=== PATIENT | female | born 1995 | race Caucasian/White ===

== ENCOUNTER 2023-01-18 01:28 | Observation (INO) | payer MEDICAID ==
[~2023-01-18] VITALS: Ht 162 cm; Wt 58.0 kg
[2023-01-18] MEDS ORDERED: LACTATED RINGERS 1,000 ML IV ONE ×3 (02:00→04:55)
[2023-01-18 02:11] LABS: BASOPHILS % (AUTO) 0 % (0-10); EOSINOPHILS % (AUTO) 0 % (0-10); HEMATOCRIT 42 % (35-52); HEMOGLOBIN 13.6 g/dL (11.5-16.0); LYMPHOCYTES # (AUTO) 0.6 10^3/uL (1.0-4.0); LYMPHOCYTES % (AUTO) 4 % (12-44); MEAN CORPUSCULAR HEMOGLOBIN 27 pg (25-34); MEAN CORPUSCULAR HGB CONC 33 g/dL (32-36); MEAN CORPUSCULAR VOLUME 83 fL (80-99); MEAN PLATELET VOLUME 10.8 fL (9.0-12.2); MONOCYTES # (AUTO) 0.5 10^3/uL (0.0-1.0); MONOCYTES % (AUTO) 4 % (0-12); NEUTROPHILS # (AUTO) 13.1 10^3/uL (1.8-7.8); NEUTROPHILS % (AUTO) 91 % (42-75); PLATELET COUNT 261 10^3/uL (130-400); WHITE BLOOD COUNT 14.3 10^3/uL (4.3-11.0)
[2023-01-18] MEDS ORDERED: KETOROLAC 30 MG/ML VIAL IVP ONE (02:15)
[2023-01-18] MEDS ORDERED: ONDANSETRON 4 MG/2 ML (SDV) Z0FRAN IVP ONE (02:15)
[2023-01-18 02:22] LABS: ALBUMIN 4.4 GM/DL (3.2-4.5)
[2023-01-18 02:23] LABS: CALCIUM 9.8 MG/DL (8.5-10.1); INR 1.2 (0.8-1.4); PROTHROMBIN TIME PATIENT 15.3 SEC (12.2-14.7)
[2023-01-18 02:25] LABS: TOTAL PROTEIN 7.8 GM/DL (6.4-8.2)
[2023-01-18 02:26] LABS: BILIRUBIN,TOTAL 1.5 MG/DL (0.1-1.0)
[2023-01-18 02:28] LABS: CREATININE SERUM 0.72 MG/DL (0.60-1.30)
[2023-01-18 02:44] LABS: LYMPHOCYTES % (MANUAL) 6 %; MONOCYTES % (MANUAL) 2 %; NEUTROPHILS % (MANUAL) 92 %; RBC MORPH NORMAL
[2023-01-18 03:41] LABS: CLARITY,URINE SL CLOUDY; COLOR,URINE ORANGE; GLUCOSE, URINE (UA) TRACE (NEGATIVE); KETONES,URINE TRACE (NEGATIVE); LEUKOCYTE ESTERASE ,URINE 1+ (NEGATIVE); NITRITE,URINE POSITIVE (NEGATIVE); PROTEIN,URINE 2+ (NEGATIVE)
--- NOTE | 2023-01-18 03:52 | ED General ---
General Chief Complaint: Fever-Adult/Adol Stated Complaint: RT SIDE PAIN,FEVER,CHILLS Nursing Triage Note: PT A&OX4; PT AMBULATES TO ROOM WITHOUT ASSISTANCE OF ER STAFF; PT ADVISES THAT FOR THE PAST 2 DAYS SHE HAS HAD INCREASING PAIN AND DISCOMFORT TO HER R FLANK; PT HAS TAKEN AZO WITHOUT AN IMPROVEMENT IN SYMPTOMS; PT PRIMARILY C/O PAIN TO R FLANK BUT ALSO REPORTS SOME DISCOMFORT WITH URINATION Source of Information: Patient Exam Limitations: No Limitations History of Present Illness Date Seen by Provider: January 18, 2023 Time Seen by Provider: 01:36 Initial Comments This 27-year-old young lady presents to the emergency room with complaints of fever, nausea and vomiting, right flank pain, dysuria, and urinary frequency. She is febrile on presentation and tachycardic with a heart rate in the 130s. Patient has dystonic movements consistent with methamphetamine use but denies any drug use. After urine drug screen returned, she did admit to smoking methamphetamine a few days ago. She reports using Azo which improved her dysuria. She denies vaginal symptoms or abdominal pain. Allergies and Home Medications Allergies Coded Allergies: No Known Drug Allergies (Unverified , 01/18/23) Patient Home Medication List Home Medication List Reviewed: Yes Review of Systems Review of Systems Constitutional: see HPI EENTM: no symptoms reported Respiratory: no symptoms reported Cardiovascular: see HPI Gastrointestinal: see HPI Genitourinary: see HPI : No Musculoskeletal: no symptoms reported Skin: no symptoms reported Psychiatric/Neurological: See HPI Hematologic/Lymphatic: No Symptoms Reported Immunological/Allergic: no symptoms reported Past Lqgvylo-Xzyjvh-Fnmozc Hx Patient Social History Tobacco Use?: Yes Tobacco type used: Cigarettes Smoking Status: Current Everyday Smoker Use of E-Cig and/or Vaping dev: No Substance use?: Yes Substance type: Methamphetamine Alcohol Use?: No Pt feels they are or have been: No Immunizations Up To Date Influenza Vaccine Up-to-Date: No; Not Current First/Initial COVID19 Vaccinat: N/A Past Medical History Surgery/Hospitalization HX: TUBAL LIGATION/D&C Surgeries: Yes Abdominal (D&C), Tubal Ligation Respiratory: No Cardiac: No Neurological: No : No Last Menstrual Period: December 28, 2022 Reproductive Disorders: No Genitourinary: No Gastrointestinal: No Musculoskeletal: No Endocrine: No HEENT: No Cancer: No Psychosocial: Yes (Urine drug screen positive for methamphetamine) Integumentary: No Physical Exam-Suspected Sepsis Physical Exam Vital Signs Vital Signs - First Documented 01/18/23 01:40 Temp 38.4 Pulse 142 Resp 24 B/P (MAP) 128/90 (103) Pulse Ox 98 O2 Delivery Room Air Capillary Refill : Less Than 3 Seconds Blood Pressure Mean: 103 Height, Weight, BMI Height: '" Weight: lbs. oz. kg; 21.00 BMI Method: General Appearance: WD/WN, Mild Distress, Thin HEENT: PERRL/EOMI, Normal ENT Inspection Neck: Normal Inspection Respiratory: Lungs Clear, Normal Breath Sounds, No Accessory Muscle Use Cardiovascular: No Edema, No Murmur, Tachycardia Gastrointestinal: Non Tender, Soft, Abnormal Bowel Sounds (Decreased); No Distended Back: Normal Inspection, CVA Tenderness (R) Extremity: Normal Inspection, No Pedal Edema Neurologic/Psychiatric: Alert, Oriented x3, No Motor/Sensory Deficits, Normal Mood/Affect, Other (Dystonic movements consistent with methamphetamine use) Skin: warm/dry, pallor Focused Exam Lactate Level 01/18/23 01:55: Lactic Acid Level 0.99 Lactic Acid Level Laboratory Tests Test 01/18/23 01:55 Lactic Acid Level 0.99 MMOL/L (0.50-2.00) Progress/Results/Core Measures Suspected Sepsis SIRS Temperature: Pulse: 142 Respiratory Rate: 24 Laboratory Tests 01/18/23 01:55: White Blood Count 14.3H Blood Pressure 128 /90 Mean: 103 01/18/23 01:55: Lactic Acid Level 0.99 Laboratory Tests 01/18/23 01:55: Creatinine 0.72, INR Comment 1.2, Platelet Count 261, Total Bilirubin 1.5H Results/Orders Lab Results Laboratory Tests Test 01/18/23 01:55 01/18/23 02:18 01/18/23 03:29 Range/Units White Blood Count 14.3 H 4.3-11.0 10^3/uL Red Blood Count 5.00 3.80-5.11 10^6/uL Hemoglobin 13.6 11.5-16.0 g/dL Hematocrit 42 35-52 % Mean Corpuscular Volume 83 80-99 fL Mean Corpuscular Hemoglobin 27 25-34 pg Mean Corpuscular Hemoglobin Concent 33 32-36 g/dL Red Cell Distribution Width 12.4 10.0-14.5 % Platelet Count 261 130-400 10^3/uL Mean Platelet Volume 10.8 9.0-12.2 fL Immature Granulocyte % (Auto) 1 % Neutrophils (%) (Auto) 91 H 42-75 % Lymphocytes (%) (Auto) 4 L 12-44 % Monocytes (%) (Auto) 4 0-12 % Eosinophils (%) (Auto) 0 0-10 % Basophils (%) (Auto) 0 0-10 % Neutrophils # (Auto) 13.1 H 1.8-7.8 10^3/uL Lymphocytes # (Auto) 0.6 L 1.0-4.0 10^3/uL Monocytes # (Auto) 0.5 0.0-1.0 10^3/uL Eosinophils # (Auto) 0.0 0.0-0.3 10^3/uL Basophils # (Auto) 0.0 0.0-0.1 10^3/uL Immature Granulocyte # (Auto) 0.1 0.0-0.1 10^3/uL Neutrophils % (Manual) 92 % Lymphocytes % (Manual) 6 % Monocytes % (Manual) 2 % Blood Morphology Comment NORMAL Prothrombin Time 15.3 H 12.2-14.7 SEC INR Comment 1.2 0.8-1.4 Activated Partial Thromboplast Time 34 24-35 SEC Sodium Level 139 135-145 MMOL/L Potassium Level 4.0 3.6-5.0 MMOL/L Chloride Level 104 98-107 MMOL/L Carbon Dioxide Level 22 21-32 MMOL/L Anion Gap 13 5-14 MMOL/L Blood Urea Nitrogen 11 7-18 MG/DL Creatinine 0.72 0.60-1.30 MG/DL Estimat Glomerular Filtration Rate 116 BUN/Creatinine Ratio 15 Glucose Level 108 H 70-105 MG/DL Lactic Acid Level 0.99 0.50-2.00 MMOL/L Calcium Level 9.8 8.5-10.1 MG/DL Corrected Calcium 9.5 8.5-10.1 MG/DL Total Bilirubin 1.5 H 0.1-1.0 MG/DL Aspartate Amino Transf (AST/SGOT) 14 5-34 U/L Alanine Aminotransferase (ALT/SGPT) 15 0-55 U/L Alkaline Phosphatase 77 40-136 U/L C-Reactive Protein High Sensitivity 20.81 H 0.00-0.50 MG/DL Total Protein 7.8 6.4-8.2 GM/DL Albumin 4.4 3.2-4.5 GM/DL Serum Test, Qualitative NEGATIVE NEGATIVE Influenza Type A (RT-PCR) Not Detected Not Detecte Influenza Type B (RT-PCR) Not Detected Not Detecte SARS-CoV-2 RNA (RT-PCR) Not Detected Not Detecte Urine Color ORANGE Urine Clarity SL CLOUDY Urine pH 6.0 5-9 Urine Specific [place] 1.020 1.016-1.022 Urine Protein 2+ H NEGATIVE Urine Glucose (UA) TRACE H NEGATIVE Urine Ketones TRACE H NEGATIVE Urine Nitrite POSITIVE H NEGATIVE Urine Bilirubin 1+ H NEGATIVE Urine Urobilinogen 4.0 < = 1.0 MG/DL Urine Leukocyte Esterase 1+ H NEGATIVE Urine RBC (Auto) NEGATIVE NEGATIVE Urine RBC RARE /HPF Urine WBC 10-25 H /HPF Urine Squamous Epithelial Cells RARE /HPF Urine Crystals NONE /LPF Urine Bacteria FEW H /HPF Urine Casts PRESENT /LPF Urine Hyaline Casts 0-2 H /LPF Urine White Blood Cell Casts RARE H /LPF Urine Mucus SMALL H /LPF Urine Trichomonas FEW H /HPF Urine Culture Indicated YES Urine Opiates Screen NEGATIVE NEGATIVE Urine Oxycodone Screen NEGATIVE NEGATIVE Urine Methadone Screen NEGATIVE NEGATIVE Urine Propoxyphene Screen NEGATIVE NEGATIVE Urine Barbiturates Screen NEGATIVE NEGATIVE Ur Tricyclic Antidepressants Screen NEGATIVE NEGATIVE Urine Phencyclidine Screen NEGATIVE NEGATIVE Urine Amphetamines Screen POSITIVE H NEGATIVE Urine Methamphetamines Screen POSITIVE H NEGATIVE Urine Benzodiazepines Screen NEGATIVE NEGATIVE Urine Cocaine Screen NEGATIVE NEGATIVE Urine Cannabinoids Screen NEGATIVE NEGATIVE My Orders Orders - DESMOND LORENZO MD Ua Culture If Indicated (01/18/23 01:36) Cbc With Automated Diff (01/18/23 01:56) Comprehensive Metabolic Panel (01/18/23 01:56) Blood Culture (01/18/23 01:56) Protime With Inr (01/18/23 01:56) Partial Thromboplastin Time (01/18/23 01:56) Vital Signs Adult Sepsis Patie Q15M (01/18/23 01:56) Remove Rings In Anticipation O (01/18/23 01:56) Lactic Acid Analyzer (01/18/23 01:56) Hs C Reactive Protein (01/18/23 01:56) Hcg,Qualitative Serum (01/18/23 01:56) Ed Iv/Invasive Line Start (01/18/23 01:56) Lactated Ringers (Lr 1000 Ml Iv Solution (01/18/23 02:00) Ondansetron Injection (Zofran Injectio (01/18/23 02:15) Ketorolac Injection (Toradol Injection) (01/18/23 02:15) Drug Screen Stat (Urine) (01/18/23 02:05) Manual Differential (01/18/23 01:55) Covid 19 Inhouse Test (01/18/23 02:15) Influenza A And B By Pcr (01/18/23 02:15) Lactated Ringers (Lr 1000 Ml Iv Solution (01/18/23 02:45) Urine Culture (01/18/23 03:29) Medications Given in ED Current Medications Medications Dose Ordered Sig/Vijay Route Start Time Stop Time Status Last Admin Dose Admin Ketorolac Tromethamine 30 mg ONCE ONCE IVP 01/18/23 02:15 01/18/23 02:16 DC 01/18/23 02:15 30 MG Lactated Ringer's 1,000 ml @ 0 mls/hr Q0M ONCE IV 01/18/23 02:00 01/18/23 02:01 DC 01/18/23 02:07 1,000 MLS/HR Lactated Ringer's 1,000 ml @ 0 mls/hr Q0M ONCE IV 01/18/23 02:45 01/18/23 02:46 DC 01/18/23 03:02 1,000 MLS/HR Ondansetron HCl 8 mg ONCE ONCE IVP 01/18/23 02:15 01/18/23 02:16 DC 01/18/23 02:15 8 MG Vital Signs/I&O 01/18/23 01:40 Temp 38.4 Pulse 142 Resp 24 B/P (MAP) 128/90 (103) Pulse Ox 98 O2 Delivery Room Air Capillary Refill : Less Than 3 Seconds Blood Pressure Mean: 103 Progress Note : Time: 04:23 Progress Note Patient was interviewed and examined shortly after arrival. Vomiting was treated with Zofran. She was hydrated with 2 L of LR. Pain was treated with Toradol. Sepsis was suspected and septic work-up was pursued. Identifying source of infection was delayed as patient could not produce a urine specimen until IV fluids were administered. Once urinalysis was reported, Rocephin was administered for probable pyelonephritis/UTI. Labs were reviewed in their entirety. Patient was noted to have leukocytosis on her CBC with a white count of 14,000. There was a relative lymphopenia which prompted viral swabs for COVID and influenza which were both negative. CMP was unremarkable. CRP was significantly elevated at 20. Urinalysis demonstrated pyuria adding to the suspicion of pyelonephritis. Urine drug screen was positive for methamphetamine. This convoluted the determination of sepsis with pyelonephritis versus simple urinary tract infection in the context of methamphetamine use. Serum test was negative. Coagulation studies were unremarkable. All labs were reviewed and interpreted by me. Patient remained tachycardic with a heart rate in the 110s even after administration of 2 L of IV fluid. Blood pressure remained stable. Symptoms of pain and nausea resolved with treatment. She was agreeable to admission. Admission was discussed with Dr. Quarles, hospitalist. Departure Communication (Admissions) Time/Spoke to Admitting Phy: 04:09 Dr. Quarles Impression Primary Impression: Pyelonephritis Additional Impression: Methamphetamine abuse Disposition: ADMITTED INPATIENT Condition: Stable Admissions Decision to Admit Reason: Admit from ER (General) Decision to Admit/Date: January 18, 2023 Time/Decision to Admit Time: 04:09 Departure-Patient Inst. Referrals: NO,LOCAL PHYSICIAN (PCP/Family) Primary Care Physician DESMOND LORENZO MD January 18, 2023 03:52
[2023-01-18 04:02] LABS: AMPHETAMINE SCREEN, URINE POSITIVE (NEGATIVE); BARBITURATE SCREEN URINE NEGATIVE (NEGATIVE); BENZODIAZEPINES SCREEN URINE NEGATIVE (NEGATIVE); CANNABINOID SCREEN, URINE NEGATIVE (NEGATIVE); COCAINE SCREEN URINE NEGATIVE (NEGATIVE); METHADONE STAT NEGATIVE (NEGATIVE); OPIATE SCREEN URINE NEGATIVE (NEGATIVE); OXYCODONE STAT NEGATIVE (NEGATIVE); PROPOXYPHENE STAT NEGATIVE (NEGATIVE); TRICYCLIC ANTIDEPRESSANTS SCRE NEGATIVE (NEGATIVE)
[2023-01-18 04:03] LABS: BACTERIA,URINE FEW /HPF; BILIRUBIN,URINE 1+ (NEGATIVE); RBC,URINE RARE /HPF; SQUAMOUS EPITHELIAL CELL,UR RARE /HPF
[2023-01-18 04:04] LABS: HYALINE CASTS, URINE 0-2 /LPF; TRICHOMONAS,URINE FEW /HPF; WHITE BLOOD CELL CASTS, URINE RARE /LPF
[2023-01-18] MEDS ORDERED: cefTRIAXone PRE-MIX 50 ML IV STA (04:08)
[2023-01-18] MEDS: LACTATED RINGERS 1,000 ML IV SCH ×3 (05:03→17:50)
[2023-01-18] MEDS ORDERED: ONDANSETRON 4 MG/2 ML (SDV) Z0FRAN IV PRN (05:15)
[2023-01-18 05:54] VITALS: BP 104/62
[2023-01-18] MEDS: KETOROLAC 15 MG/ML VIAL IVP PRN ×2 (08:07→15:05)
[2023-01-18 08:49] VITALS: BP 98/57
[2023-01-18] MEDS: ACETAMINOPHEN 500 MG TAB (TYLENOL) PO PRN ×3 (09:39→23:48)
[2023-01-18] MEDS ORDERED: cefTRIAXone IV/IM 1,000 MG in NS (IVPB) 50 ML IV ONE (10:30)
[2023-01-18 11:39] VITALS: BP 101/63
[2023-01-18 15:50] VITALS: BP 92/58
[2023-01-18 19:27] VITALS: BP 96/61
--- NOTE | 2023-01-18 20:40 | History & Physical-Hospitalist ---
History of Present Illness HPI/Chief Complaint Vidhi Anaya is a 27 year old female who presented with flank pain. She has also had fevers. She reports dysuria and urinary frequency. She denies chest pain. She denies shortness of breath. She has no known health problems. She does not take any medications. She does use methamphetamine. Source: patient Exam Limitations: no limitations Date Seen 01/18/23 Time Seen by a Provider: 10:30 Attending Physician No,Local Physician PCP Admitting Physician: Kathy Parnell MD Attending Physician: Kathy Parnell MD Referring Physician Date of Admission January 18, 2023 at 04:25 Home Medications & Allergies Home Medications Reviewed patient Home Medication Reconciliation performed by pharmacy medication reconciliations career resource technician and/or nursing. Patients Allergies have been reviewed. Allergies Allergies Coded Allergies No Known Drug Allergies (Unverified01/18/23) Past Krfnsux-Ortind-Jxflik Hx Patient Social History Tobacco Use?: Yes Tobacco type used: Cigarettes Smoking Status: Current Everyday Smoker Smokeless Tobacco Frequency: Never a User Use of E-Cig and/or Vaping dev: No Substance use?: Yes Substance type: Amphetamines, Methamphetamine Substance frequency: Several times a month Alcohol Use?: No Pt feels they are or have been: No Immunizations Up To Date First/Initial COVID19 Vaccinat: N/A Current Status Advance Directives: No Communicates: Verbally Primary Language: Kyrgyz Preferred Spoken Language: Kyrgyz Is interpretation needed?: No Implanted or Applied Medical D: None Past Medical History Surgeries: Abdominal (D&C), Tubal Ligation Review of Systems Constitutional: chills, fever Respiratory: no symptoms reported Cardiovascular: no symptoms reported Gastrointestinal: nausea Genitourinary: dysuria, frequency Physical Exam Physical Exam Vital Signs Vital Signs - First Documented 01/18/23 01:40 Temp 38.4 Pulse 142 Resp 24 B/P (MAP) 128/90 (103) Pulse Ox 98 O2 Delivery Room Air Capillary Refill : Less Than 3 Seconds Height, Weight, BMI Height: '" Weight: lbs. oz. kg; 22.10 BMI Method: General Appearance: No Apparent Distress, WD/WN HEENT: PERRL/EOMI, Pharynx Normal Neck: Normal Inspection, Supple Respiratory: Lungs Clear, No Respiratory Distress Cardiovascular: No Murmur, Tachycardia Gastrointestinal: Normal Bowel Sounds, Soft Extremity: Normal Inspection, No Pedal Edema Neurologic/Psychiatric: Alert, Oriented x3, Other (restless, fidgety) Skin: Normal Color, Warm/Dry Results Results/Procedures Labs Laboratory Tests 01/18/23 01:55 Patient resulted labs reviewed. Assessment/Plan Admission Diagnosis Sepsis due to pyelonephritis Admission Status: Inpatient Order (span 2 midnights) Reason for Inpatient Admission: IV antibiotics Assessment and Plan Sepsis due to pyelonephritis SIRS positive UA consistent with UTI History and exam consistent with kidney infection Urine culture pending Blood cultures pending IV fluids Rocephin Methamphetamine abuse and intoxication IV fluids Monitor Diagnosis/Problems Diagnosis/Problems (1) Sepsis Status: Acute (2) Pyelonephritis Status: Acute (3) Methamphetamine abuse Status: Acute (4) Methamphetamine intoxication Status: Acute KATHY PARNELL MD January 18, 2023 20:40
[2023-01-18 23:48] VITALS: BP 102/57
[2023-01-19] VITALS (7 sets, daily range): BP systolic 95–111; BP diastolic 51–73
[2023-01-19] MEDS: LACTATED RINGERS 1,000 ML IV SCH ×3 (00:52→17:28)
[2023-01-19] MEDS: NS IV SCH (05:57)
[2023-01-19] MEDS: CEFTRIAXONE IV SCH (05:57)
[2023-01-19] MEDS ORDERED: cefTRIAXone 1 GM/NS 50 ML IVPB IV SCH ×2 (06:00)
[2023-01-19] MEDS: ACETAMINOPHEN 500 MG TAB (TYLENOL) PO PRN (08:10)
[2023-01-19] MEDS: KETOROLAC 15 MG/ML VIAL IVP PRN ×2 (08:15→16:16)
[2023-01-19 09:23] LABS: BASOPHILS % (AUTO) 0 % (0-10); EOSINOPHILS % (AUTO) 0 % (0-10); MONOCYTES # (AUTO) 0.6 10^3/uL (0.0-1.0); PLATELET COUNT 130 10^3/uL (130-400)
[2023-01-19 09:25] LABS: HEMATOCRIT 28 % (35-52); HEMOGLOBIN 9.1 g/dL (11.5-16.0); LYMPHOCYTES # (AUTO) 0.7 10^3/uL (1.0-4.0); LYMPHOCYTES % (AUTO) 8 % (12-44); MEAN CORPUSCULAR HEMOGLOBIN 27 pg (25-34); MEAN CORPUSCULAR HGB CONC 32 g/dL (32-36); MEAN CORPUSCULAR VOLUME 85 fL (80-99); MONOCYTES % (AUTO) 8 % (0-12); NEUTROPHILS # (AUTO) 6.5 10^3/uL (1.8-7.8); NEUTROPHILS % (AUTO) 83 % (42-75); WHITE BLOOD COUNT 7.8 10^3/uL (4.3-11.0)
[2023-01-19 09:36] LABS: ALBUMIN 2.7 GM/DL (3.2-4.5)
[2023-01-19 09:37] LABS: POTASSIUM 3.9 MMOL/L (3.6-5.0)
[2023-01-19 09:38] LABS: CALCIUM 8.1 MG/DL (8.5-10.1)
[2023-01-19 09:41] LABS: BILIRUBIN,TOTAL 0.3 MG/DL (0.1-1.0)
[2023-01-19 09:42] LABS: CREATININE SERUM 0.57 MG/DL (0.60-1.30)
--- NOTE | 2023-01-19 17:14 | Progress Note - Hospitalist ---
Subjective HPI/CC On Admission Date Seen by Provider: January 19, 2023 Time Seen by Provider: 12:30 Vidhi Anaya is a 27 year old female who presented with flank pain. She has also had fevers. She reports dysuria and urinary frequency. She denies chest pain. She denies shortness of breath. She has no known health problems. She does not take any medications. She does use methamphetamine. Subjective/Events-last exam She is still having fevers and chills. She is having nausea. She still has side pain. Focused Exam Lactate Level 01/18/23 01:55: Lactic Acid Level 0.99 Objective Exam Vital Signs Vital Signs Date Time Temp Pulse Resp B/P (MAP) Pulse Ox O2 Delivery O2 Flow Rate FiO2 01/19/23 17:09 37.2 01/19/23 15:40 102 20 111/73 (86) 98 Room Air Capillary Refill : Less Than 3 Seconds General Appearance: No Apparent Distress, WD/WN Respiratory: Lungs Clear, No Respiratory Distress Cardiovascular: No Murmur, Tachycardia Gastrointestinal: Normal Bowel Sounds, Soft Back: CVA Tenderness (R) Extremity: Normal Inspection, No Pedal Edema Neurologic/Psychiatric: Alert, Depressed Affect Skin: Warm/Dry, Pallor Results/Procedures Lab Laboratory Tests 01/19/23 09:17 Patient resulted labs reviewed. Assessment/Plan Assessment and Plan Assess & Plan/Chief Complaint Sepsis due to pyelonephritis SIRS positive UA consistent with UTI History and exam consistent with kidney infection Urine culture with chu-sensitive E coli Blood cultures with no growth IV fluids Continue Rocephin Methamphetamine abuse and intoxication IV fluids Monitor DVT prophylaxis: ambulation Diagnosis/Problems Diagnosis/Problems (1) Sepsis Status: Acute (2) Pyelonephritis Status: Acute (3) Methamphetamine abuse Status: Acute (4) Methamphetamine intoxication Status: Acute KIZZY PARNELL MD January 19, 2023 17:14
[2023-01-20] MEDS: LACTATED RINGERS 1,000 ML IV SCH ×3 (01:30→17:22)
[2023-01-20] MEDS: ACETAMINOPHEN 500 MG TAB (TYLENOL) PO PRN ×2 (01:34→17:22)
[2023-01-20 03:21] VITALS: BP 105/66
[2023-01-20] MEDS: NS IV SCH (05:28)
[2023-01-20] MEDS: CEFTRIAXONE IV SCH (05:28)
[2023-01-20 07:48] VITALS: BP 108/63
[2023-01-20] MEDS ORDERED: CEPH500T PO (09:58)
--- NOTE | 2023-01-20 09:59 | Discharge Inst-Simple/Standard ---
Discharge Inst-Standard Discharge Medications New, Converted or Re-Newed RX: Transmitted to Pharmacy Patient Instructions/Follow Up Plan of Care/Instructions/FU: Chest pain, shortness of breath, fever, weakness, if you feel you are getting worse. Activity as Tolerated: Yes Discharge Diet: No Restrictions Return to The Hospital For: Chest pain, shortness of breath, fever, weakness, if you feel you are getting worse. BERENICE LIMA MD January 20, 2023 09:59
--- NOTE | 2023-01-20 10:36 | Discharge Summary ---
Diagnosis/Chief Complaint Date of Admission January 18, 2023 at 04:25 Date of Discharge Discharge Date: January 20, 2023 Admission Diagnosis Sepsis due to pyelonephritis Primary Care No,Local Physician Discharge Diagnosis (1) Sepsis Status: Acute (2) Pyelonephritis Status: Acute (3) Methamphetamine abuse Status: Acute (4) Methamphetamine intoxication Status: Acute Discharge Summary Discharge Physical Exam Allergies: Coded Allergies: No Known Drug Allergies (Unverified , 01/18/23) Vitals & I&Os Vital Signs Date Time Temp Pulse Resp B/P (MAP) Pulse Ox O2 Delivery O2 Flow Rate FiO2 01/21/23 14:53 37.1 86 20 108/70 97 Room Air General Appearance: No Apparent Distress, WD/WN Cardiovascular: Regular Rate, Rhythm, No Murmur Neurologic/Psychiatric: Alert, Oriented x3 Hospital Course Patient was admitted to the hospital secondary to sepsis due to pyelonephritis. She was treated with IV Rocephin and urine cultures revealed pansensitive E. coli. Blood cultures were negative. Her leukocytosis resolved and she was afebrile x24 hours upon discharge. She was transitioned to Keflex to complete course. She is to follow-up with her primary care physician to follow-up this hospital stay. Of note discharged was delayed 1 day from when this was written due to recurrent fever but she was discharged home on 01/21 after 24 hours without a fever. Labs (last 24 hrs) Microbiology 01/18/23 Urine Culture - Final, Complete Escherichia coli 01/18/23 Blood Culture - Preliminary, Resulted No growth Patient resulted labs reviewed. Discussion & Recommendations Discharge Planning: >30 minutes discharge planning Discharge Home Medications: Active Scripts Active Cephalexin 500 Mg Tablet 500 Mg PO BID Instructions to patient/family Please see electronic discharge instructions given to patient. BERENICE LIMA MD January 20, 2023 10:36
[2023-01-20 11:58] VITALS: BP 111/65
[2023-01-20 15:26] VITALS: BP 118/71
[2023-01-20] MEDS: KETOROLAC 15 MG/ML VIAL IVP PRN (15:39)
[2023-01-20 19:37] VITALS: BP 113/58
[2023-01-20 23:18] VITALS: BP 108/74
[2023-01-21] MEDS: LACTATED RINGERS 1,000 ML IV SCH ×2 (01:26→10:10)
[2023-01-21 03:23] VITALS: BP 129/75
[2023-01-21] MEDS: CEFTRIAXONE IV SCH (05:27)
[2023-01-21] MEDS: NS IV SCH (05:27)
[2023-01-21 07:36] VITALS: BP 101/66
[2023-01-21 12:00] VITALS: BP 108/70
--- NOTE | 2023-01-21 12:06 | Progress Note - Hospitalist ---
Subjective HPI/CC On Admission Date Seen by Provider: January 21, 2023 Vidhi Anaya is a 27 year old female who presented with flank pain. She has also had fevers. She reports dysuria and urinary frequency. She denies chest pain. She denies shortness of breath. She has no known health problems. She does not take any medications. She does use methamphetamine. Subjective/Events-last exam Pt reports feeling better today just tired. No fever overnight but did have one on discharge vitals so monitor overnight again. Plan to DC today. Objective Exam Vital Signs Vital Signs Date Time Temp Pulse Resp B/P (MAP) Pulse Ox O2 Delivery O2 Flow Rate FiO2 01/21/23 08:00 Room Air 01/21/23 07:36 37.1 98 18 101/66 (78) 96 Capillary Refill : Less Than 3 Seconds General Appearance: No Apparent Distress Respiratory: Lungs Clear Cardiovascular: Regular Rate, Rhythm Neurologic/Psychiatric: Alert, Oriented x3 Results/Procedures Lab Patient resulted labs reviewed. Assessment/Plan Assessment and Plan Assess & Plan/Chief Complaint Sepsis due to pyelonephritis UA consistent with UTI History and exam consistent with kidney infection Urine culture with chu-sensitive E coli Blood cultures with no growth Continue Rocephin and transition to Keflex upon DC later today DVT prophylaxis: ambulation Diagnosis/Problems Diagnosis/Problems (1) Sepsis Status: Acute (2) Pyelonephritis Status: Acute (3) Methamphetamine abuse Status: Acute (4) Methamphetamine intoxication Status: Acute BERENICE LIMA MD January 21, 2023 12:06
[2023-01-21 14:53] VITALS: BP 108/70
== END 2023-01-21 14:55 | disposition home or self-care (01) ==
LOC: ER 01:32 → UNDOADMOB 04:25 → 4TH 04:25 → UNDODISOB 01-21 14:55
PROVIDERS: ADMIT Internal Medicine; ATTEND Internal Medicine
DX: A41.9 Sepsis, unspecified organism (principal); N10 Acute pyelonephritis; T43.655A Adverse effect of methamphetamines, initial encounter; F19.10 Other psychoactive substance abuse, uncomplicated; F17.210 Nicotine dependence, cigarettes, uncomplicated; Z28.310 Unvaccinated for COVID-19
CPT/HCPCS: 36415; 80053; 80306; 81000; 83605; 84703; 85007; 85025; 85027; 85610; 85730; 86141; 87040; 87077; 87088; 87186; 87636; 96366; 96374; 96375; 96376; G0378